=== PATIENT | male | born 1975 | race Asian ===

== ENCOUNTER 2018-08-30 14:39 | Inpatient (IN) | payer BC, OTHER ==
[~2018-08-30] VITALS: Ht 165.1 cm; Wt 76.2 kg
[2018-08-30] MEDS ORDERED: MORPHINE SULFATE 4 MG/ML CPJ (NOT FOR IM USE) IV STA (17:21)
[2018-08-30] MEDS ORDERED: SODIUM CHLORIDE 0.9% 1,000 ML IV ONE (17:21)
[2018-08-30 17:59] LABS: HEMATOCRIT. 45.7 % (42.0-52.0); HEMOGLOBIN. 15.7 g/dL (14.0-18.0); MEAN CORPUSCULAR HEMOGLOBIN 31.3 pg (28.0-32.0); MEAN CORPUSCULAR VOLUME 91.2 fL (80.0-94.0); MEAN PLATELET VOLUME 8.3 fl (7.4-10.4); PLATELET 237 x1000/uL (130-400); RED CELL DISTRIBUTION WIDTH 12.8 % (11.6-14.6)
[2018-08-30 18:04] LABS: CHLORIDE 107 mEq/L (98-107)
[2018-08-30 18:05] LABS: INR 1.1
[2018-08-30 18:15] LABS: PLATELET ESTIMATE NORMAL
[2018-08-30] MEDS ORDERED: IOHEXOL-300 100 ML BOTTLE ONE (20:04)
[2018-08-30] MEDS ORDERED: MORPHINE SULFATE 4 MG/ML CPJ (NOT FOR IM USE) IV ONE (21:00)
[2018-08-30] MEDS ORDERED: CLINDAMYCIN 900 MG in DEXTROSE 5% WATER 50 ML IV ONE (21:00)
[2018-08-30] MEDS ORDERED: PROPOFOL 200MG/20ML VIAL IV ONE ×2 (21:02→22:20)
[2018-08-30] MEDS ORDERED: FENTANYL CITRATE/PF 50MCG/ML 2ML VIAL ONE ×2 (21:02→22:19)
[2018-08-30] MEDS ORDERED: LIDOCAINE HCL/PF 1% 10 MG/ML 5ML VIAL ONE (21:02)
[2018-08-30] MEDS ORDERED: MIDAZOLAM HCL 2 MG/2 ML VIAL ONE (21:03)
[2018-08-30] MEDS ORDERED: MAGNESIUM/ALUMINUM HYDROXIDE/SIMETHICONE 30ML UDC PO PRN (21:15)
[2018-08-30] MEDS ORDERED: KETOROLAC 15MG/ML VIAL IV PRN (21:15)
[2018-08-30] MEDS ORDERED: ONDANSETRON HCL 4MG/2ML INJ IV PRN (21:15)
[2018-08-30] MEDS ORDERED: ZOLPIDEM TARTRATE 5MG TABLET PO PRN (21:15)
[2018-08-30] MEDS ORDERED: LORAZEPAM 0.5MG TABLET PO PRN (21:15)
[2018-08-30] MEDS ORDERED: IPRATROPIUM/ALBUTEROL 0.5-3(2.5)MG/3ML NEB INH PRN (21:15)
[2018-08-30] MEDS ORDERED: NITROGLYCERIN 0.4MG TABLET SL SL PRN (21:15)
[2018-08-30] MEDS ORDERED: GUAIFENESIN 200MG/10ML SUGAR FREE UDC PO PRN (21:15)
[2018-08-30] MEDS ORDERED: CLONIDINE 0.1MG TABLET PO PRN (21:15)
[2018-08-30] MEDS ORDERED: ACETAMINOPHEN 325MG TABLET PO PRN (21:15)
[2018-08-30] MEDS ORDERED: TRAMADOL 50MG TABLET PO PRN (21:15)
[2018-08-30] MEDS ORDERED: NA PHOS,M-B/NA PHOS,DI-BA ENEMA 118ML PR PRN (21:15)
[2018-08-30] MEDS ORDERED: DOCUSATE SODIUM 100MG CAPSULE PO PRN (21:15)
[2018-08-30] MEDS ORDERED: MORPHINE SULFATE 4 MG/ML CPJ (NOT FOR IM USE) IV NR (21:45)
[2018-08-30] MEDS ORDERED: DEXAMETHASONE 4MG/ML 1ML VIAL ONE ×2 (22:03→22:13)
[2018-08-30] MEDS ORDERED: ONDANSETRON HCL 4MG/2ML INJ ONE (22:03)
[2018-08-30] MEDS ORDERED: LIDOCAINE HCL 1% 20ML VIAL (Pyxis) INJ ONE (22:28)
[2018-08-30] MEDS ORDERED: BACITRACIN 50,000 UNITS/VIAL ONE (22:29)
[2018-08-30] MEDS ORDERED: NORMAL SALINE 0.9% 10 ML SYR ONE (22:29)
[2018-08-30] MEDS ORDERED: BACITRACIN 15GM TUBE TOP ONE (22:29)
[2018-08-30] MEDS ORDERED: BUPIVACAINE HCL/PF 0.5% (5MG/ML) 10ML ONE (22:29)
[2018-08-30] MEDS ORDERED: HYDROMORPHONE HCL/PF 2MG/ML CPJ IV PRN (23:00)
[2018-08-31] VITALS: BP 120/83
[2018-08-31] MEDS: DEXT 5%/0.45% NACL 1000ML 1,000 ML IV SCH ×3 (01:03→18:56)
[2018-08-31] MEDS: ENOXAPARIN 40MG/0.4ML SYR SUBCUT SCH ×2 (01:03→20:14)
[2018-08-31] MEDS: PIPERACILLIN/TAZ 3.375G PREMIX 50 ML IV SCH ×3 (01:03→16:35)
[2018-08-31 04:00] VITALS: BP 110/68
[2018-08-31 08:00] VITALS: BP 107/68
[2018-08-31] MEDS: PANTOPRAZOLE SODIUM 40 MG/VIAL IV SCH (09:00)
[2018-08-31 12:00] VITALS: BP 110/89
[2018-08-31 14:41] LABS: HEMATOCRIT. 43.8 % (42.0-52.0); HEMOGLOBIN. 15.3 g/dL (14.0-18.0); MEAN CORPUSCULAR HEMOGLOBIN 31.9 pg (28.0-32.0); MEAN CORPUSCULAR VOLUME 91.3 fL (80.0-94.0); MEAN PLATELET VOLUME 8.4 fl (7.4-10.4); PLATELET 257 x1000/uL (130-400); RED CELL DISTRIBUTION WIDTH 12.7 % (11.6-14.6)
[2018-08-31 15:24] LABS: PLATELET ESTIMATE NORMAL
[2018-08-31] MEDS ORDERED: IOHEXOL-300 100 ML BOTTLE ONE (15:31)
[2018-08-31 16:00] VITALS: BP 112/63
[2018-08-31 20:00] VITALS: BP 116/88
[2018-08-31] MEDS: MORPHINE SULFATE 4 MG/ML CPJ (NOT FOR IM USE) IV PRN (20:15)
[2018-09-01] VITALS: BP 112/57
[2018-09-01] MEDS: MORPHINE SULFATE 4 MG/ML CPJ (NOT FOR IM USE) IV PRN ×2 (00:04→04:43)
[2018-09-01 00:51] LABS: CLARITY URINE CLEAR (CLEAR); COLOR URINE YELLOW (YELLOW); KETONES URINE NEGATIVE (NEGATIVE); LEUKOCYTE ESTERASE URINE NEGATIVE (NEGATIVE); NITRITE URINE NEGATIVE (NEGATIVE); OCCULT BLOOD URINE NEGATIVE (NEGATIVE); PH URINE 5.5 (4.5-8.0); PROTEIN URINE NEGATIVE (NEGATIVE); SPECIFIC GRAVITY URINE 1.019 (1.005-1.030)
[2018-09-01 01:06] LABS: *AMPHETAMINES SCREEN URINE NEGATIVE (NEGATIVE); *BARBITURATES SCREEN URINE NEGATIVE (NEGATIVE)
[2018-09-01 01:07] LABS: *BENZODIAZEPINES SCREEN URINE PRESUMTIVE POSITIVE (NEGATIVE); *COCAINE SCREEN URINE NEGATIVE (NEGATIVE); CANNABINOID URINE SCREEN NEGATIVE (NEGATIVE); METHADONE URINE SCREEN NEGATIVE (NEGATIVE); OPIATES URINE SCREEN PRESUMTIVE POSITIVE (NEGATIVE)
[2018-09-01 01:08] LABS: PHENCYCLIDINE URINE SCREEN NEGATIVE (NEGATIVE)
[2018-09-01] MEDS: PIPERACILLIN/TAZ 3.375G PREMIX 50 ML IV SCH ×3 (01:08→18:27)
[2018-09-01] MEDS: DEXT 5%/0.45% NACL 1000ML 1,000 ML IV SCH (01:08)
[2018-09-01 04:00] VITALS: BP 121/71
[2018-09-01 06:54] LABS: BASOPHILS % 0.4 % (0.0-2.0); EOSINOPHILS % 0.2 % (0.0-5.0); HEMATOCRIT. 44.1 % (42.0-52.0); HEMOGLOBIN. 14.9 g/dL (14.0-18.0); LYMPHOCYTES % 10.1 % (20.0-50.0); MEAN CORPUSCULAR HEMOGLOBIN 31.1 pg (28.0-32.0); MEAN CORPUSCULAR VOLUME 92.2 fL (80.0-94.0); MEAN PLATELET VOLUME 8.5 fl (7.4-10.4); MONOCYTES % 9.6 % (2.0-8.0); NEUTROPHILS % 79.7 % (40.0-76.0); PLATELET 243 x1000/uL (130-400); RED BLOOD CELL COUNT 4.79 mill/uL (4.7-6.1); RED CELL DISTRIBUTION WIDTH 12.8 % (11.6-14.6)
[2018-09-01] MEDS ORDERED: NORMAL SALINE 0.9% 10 ML SYR ONE (07:20)
[2018-09-01] MEDS ORDERED: BUPIVACAINE HCL 0.5% (5MG/ML) 50ML ONE (07:20)
[2018-09-01] MEDS ORDERED: BACITRACIN 15GM TUBE TOP ONE (07:20)
[2018-09-01] MEDS ORDERED: BACITRACIN 50,000 UNITS/VIAL ONE (07:21)
[2018-09-01] MEDS ORDERED: FENTANYL CITRATE/PF 50MCG/ML 2ML VIAL ONE (07:36)
[2018-09-01] MEDS ORDERED: MIDAZOLAM HCL 2 MG/2 ML VIAL ONE (07:36)
[2018-09-01] MEDS ORDERED: PROPOFOL 200MG/20ML VIAL IV ONE (07:37)
[2018-09-01] MEDS ORDERED: LIDOCAINE HCL/PF 1% 10 MG/ML 5ML VIAL ONE (07:37)
[2018-09-01] MEDS ORDERED: ROCURONIUM BROMIDE 10MG/ML VIAL 5ML IV ONE (07:39)
[2018-09-01 07:41] LABS: CHLORIDE 107 mEq/L (98-107)
[2018-09-01 08:00] VITALS: BP 132/88
[2018-09-01] MEDS ORDERED: DEXAMETHASONE 4MG/ML 1ML VIAL ONE (08:30)
[2018-09-01] MEDS ORDERED: HYDROMORPHONE HCL/PF 2MG/ML CPJ IV PRN (08:30)
[2018-09-01] MEDS ORDERED: ONDANSETRON HCL 4MG/2ML INJ ONE (08:30)
[2018-09-01] MEDS ORDERED: LIDOCAINE HCL 1% 20ML VIAL (Pyxis) INJ ONE (08:32)
[2018-09-01] MEDS ORDERED: NEOSTIGMINE METHYLSULFATE 1MG/ML 10 ML VIAL ONE (08:41)
[2018-09-01] MEDS ORDERED: GLYCOPYRROLATE 0.2 MG/ML 2ML VIAL ONE (08:42)
[2018-09-01] MEDS: PANTOPRAZOLE SODIUM 40 MG/VIAL IV SCH (11:00)
[2018-09-01 12:00] VITALS: BP 130/91
[2018-09-01 16:00] VITALS: BP 133/88
[2018-09-01 20:00] VITALS: BP 109/68
[2018-09-01] MEDS: ENOXAPARIN 40MG/0.4ML SYR SUBCUT SCH (20:22)
[2018-09-02] VITALS: BP 111/70
[2018-09-02] MEDS: PIPERACILLIN/TAZ 3.375G PREMIX 50 ML IV SCH ×2 (01:26→10:06)
[2018-09-02 04:00] VITALS: BP 120/78
[2018-09-02 08:00] VITALS: BP 134/89
[2018-09-02] MEDS: PANTOPRAZOLE SODIUM 40 MG/VIAL IV SCH (10:06)
[2018-09-02 11:50] VITALS: BP 131/82
[2018-09-02 12:20] VITALS: BP 131/82
[2018-09-02] MEDS: MORPHINE SULFATE 4 MG/ML CPJ (NOT FOR IM USE) IV PRN (12:20)
== END 2018-09-02 13:00 | disposition home or self-care (01) | DRG 334 ==
LOC: ER 16:02 → 5WST 21:04 → SUPCPDRO 21:21 → ENRESERV 21:57 → 5WST 08-31 00:19
PROVIDERS: ADMIT Internal Medicine; ATTEND Internal Medicine
PROC: 0D9P0ZZ Drainage of Rectum, Open Approach (ICD-10-PCS; principal; 2018-08-30)
PROC: 0DBP0ZZ Excision of Rectum, Open Approach (ICD-10-PCS; 2018-09-01)
PROC: 0D9P3ZZ Drainage of Rectum, Percutaneous Approach (ICD-10-PCS; 2018-09-01)
DX: K61.2 Anorectal abscess (principal); F17.200 Nicotine dependence, unspecified, uncomplicated
CPT/HCPCS: 36415; 72193; 80305; 83036; 83605; 87070; 87075; 87077; 87186; 93005; 96374; 99285; C9113; J1100; J1650; J2250; J2270; J2405; J2543; J2704; J2710; J3010; J3490; J7030; J7060; Q9967